=== PATIENT | female | born 1950 | race Caucasian/White ===

== ENCOUNTER → 2020-10-31 | Outpatient (CLI) | payer OTHER | LOC: HEART 5 11:00 | DX: R00.0 Tachycardia, unspecified (principal) ==

== ENCOUNTER 2020-11-01 21:51 | Emergency (ER) | payer OTHER ==
[2020-11-01 23:40] LABS: HEMOGLOBIN 14.2 gm/dl (12.3-15.3); RED BLOOD COUNT 4.62 M/UL (4.00-5.10); WHITE BLOOD COUNT 8.4 K/UL (4.5-11.0)
[2020-11-02 00:06] LABS: BUN/CREATININE RATIO 31 (0-10)
== END 2020-11-02 00:58 | disposition home or self-care (01) ==
LOC: ER1 21:51
PROVIDERS: Physician Assistant
DX: R00.2 Palpitations (principal); Z85.828 Personal history of other malignant neoplasm of skin
CPT/HCPCS: 71045; 80053; 82550; 82553; 83735; 83874; 83880; 84439; 84443; 84484; 85025; 85610; 85730; 93005; 99285

== ENCOUNTER 2021-01-11 02:10 | Emergency (ER) | payer OTHER | END 2021-01-11 03:30 | disposition left against medical advice (07) | LOC: ER1 02:10 | DX: Z53.21 Procedure and treatment not carried out due to patient leaving prior to being seen by health care provider (principal) | CPT/HCPCS: 93005 ==

== ENCOUNTER 2021-01-12 22:19 | Emergency (ER) | payer OTHER ==
[2021-01-13 03:30] LABS: HEMOGLOBIN 14.1 gm/dl (12.3-15.3); RED BLOOD COUNT 4.67 M/UL (4.00-5.10); WHITE BLOOD COUNT 8.6 K/UL (4.5-11.0)
[2021-01-13 03:44] LABS: BUN/CREATININE RATIO 27 (0-10)
== END 2021-01-13 04:57 | disposition home or self-care (01) ==
LOC: ER1 22:19
PROVIDERS: Physician Assistant
DX: I10 Essential (primary) hypertension (principal)
CPT/HCPCS: 71045; 80053; 82550; 82553; 83735; 83874; 83880; 84439; 84443; 84484; 85025; 85610; 85730; 93005; 99285